=== PATIENT | female | born 1985 | race Caucasian/White ===

== ENCOUNTER 2016-04-29 19:19 | Inpatient (IN) | payer BC ==
[~2016-04-29 19:19] MED LIST: Dinoprostone* 10 MG VAG.SUPP VAGINAL ONE
[2016-04-30] MEDS ORDERED: Oxytocin in LR* 20 UNITS/1,000 ML BAG IVPB SCH (12:00)
[2016-04-30 12:51] LABS: Hematocrit 40 % (35-47); Hemoglobin 13.4 g/dl (12.0-16.0); Mean Corpuscular HGB Conc 34 g/dl (31-36); Mean Corpuscular Hemoglobin 31 pg (27-31); Mean Corpuscular Volume 93 fL (80-97); Mean Platelet Volume 9 um3 (7.4-10.4); Red Blood Count 4.27 10^6/ul (4.0-5.4); Red Cell Distribution Width 14 % (10.5-15); White Blood Count 12.3 10^3/ul (3.5-10.8)
[2016-04-30] MEDS ORDERED: Gentamicin ADULT (*) 40 MG/ML VIAL IVPB ONE (19:38)
[2016-04-30] MEDS ORDERED: Vancomycin(*) 1,000 MG in NS 0.9% 250 ML* 250 ML IVPB SCH (20:00)
[2016-04-30] MEDS ORDERED: OBEPIDURAL* 250 ML ONE (21:21)
[2016-04-30] MEDS ORDERED: Famotidine TAB* 20 MG PO PRN (22:17)
[2016-04-30] MEDS ORDERED: Sodium Citrate/Citric Acid* 15 ML UDC PO PRN (22:17)
[2016-04-30] MEDS ORDERED: Phenylephrine IV* 40 MCG/ML 10 ML SYRINGE IV PUSH PRN ×2 (22:17)
[2016-04-30] MEDS ORDERED: EPHEDrine (Pressors)* 50 MG/ML VIAL IV PUSH PRN ×2 (22:17)
[2016-04-30] MEDS ORDERED: OBEPIDURAL* 250 ML EPIDURAL SCH (23:00)
[2016-05-01] MEDS ORDERED: Oxytocin in LR* 20 UNITS/1,000 ML BAG IVPB SCH ×2 (06:00→14:00)
[2016-05-01] MEDS ORDERED: Sodium Citrate/Citric Acid* 15 ML UDC PO ONE (10:49)
[2016-05-01] MEDS ORDERED: ceFOXitin 2 GM IVPREMIX* 2 GM/50 ML BAG IVPB ONE (10:49)
[2016-05-01] MEDS ORDERED: Morphine PF AMP (0.5MG/ML)* 5 MG/10 ML AMP ONE (11:18)
[2016-05-01] MEDS ORDERED: OXYTOCIN* 10 UNITS/ML 1 ML VIAL ONE (11:18)
[2016-05-01] MEDS ORDERED: Phenylephrine IV* 40 MCG/ML 10 ML SYRINGE ONE (11:18)
[2016-05-01] MEDS ORDERED: Ondansetron INJ* 2 MG/ML VIAL IV PRN ×2 (12:10→12:12)
[2016-05-01] MEDS ORDERED: fentaNYL* 50 MCG/ML 2 ML VIAL (100 MCG VIAL) IV PRN (12:10)
[2016-05-01] MEDS ORDERED: Naloxone* 0.4 MG/ML 1 ML VIAL IV PRN (12:12)
[2016-05-01] MEDS ORDERED: diPHENhydraMINE IV* 50 MG/ML 1 ml VIAL (BENADRYL) IV PRN (12:12)
[2016-05-01] MEDS ORDERED: oxyCODONE/Acetamin 5/325 MG* TAB PO PRN ×3 (12:12→13:15)
[2016-05-01] MEDS ORDERED: Ondansetron INJ* 2 MG/ML VIAL ONE (12:41)
[2016-05-01] MEDS ORDERED: Glycerin ADULT SUPP PR PRN (13:15)
[2016-05-01] MEDS ORDERED: Dibucaine 1% 28.35 GM TUBE PR PRN (13:15)
[2016-05-01] MEDS ORDERED: Witch Hazel PAD* JAR TOPICAL PRN (13:15)
[2016-05-01] MEDS: Ketorolac INJ* 30 MG/ML 1 ML VIAL IV PRN ×2 (14:24→20:42)
[2016-05-01] MEDS: Docusate CAP* 100 MG PO SCH (14:25)
[2016-05-01] MEDS ORDERED: Scopolamine 1.5 mg* PATCH TRANSDERM PRN (14:58)
[2016-05-01] MEDS ORDERED: DiMENhydriNATE IV* 50 MG/ML VIAL IV PUSH PRN (14:58)
[2016-05-01] MEDS: Simethicone TAB* 80 MG TAB.CHEW PO SCH (18:57)
[2016-05-01] MEDS ORDERED: Nalbuphine* 20 MG/ML 1 ML VIAL ONE (21:26)
--- NOTE | 2016-05-01 22:32 | OP ---
AMENDED REPORT NOW INCLUDES DATE OF OPERATION - ESIGNED BEFORE ADJUSTMENT * DATE OF OPERATION: 05/02/16 - ROOM #113 DATE OF : 83 SURGEON: Elisa العلي MD VAMP MARKER: Jeromy Peres CNM ANESTHESIOLOGIST: Dr. Fernandez. ANESTHESIA: Spinal anesthesia. PRE-OP DIAGNOSIS: 41 weeks' gestation and arrest of dilation and descent at 4 cm. POST-OP DIAGNOSIS: 41 weeks' gestation and arrest of dilation and descent at 4 cm. OPERATIVE PROCEDURE: Primary low flap transverse section via Pfannenstiel. Uterus closed in 2 layers. ESTIMATED BLOOD LOSS: 700 cc. URINE OUTPUT: 400 cc clear urine. FINDINGS: Viable female in the vertex presentation. Apgars were 9 and 9. Weight is 10 pounds 11 ounces. Normal-appearing uterus. Normal-appearing ovaries and fallopian tubes bilaterally. COMPLICATIONS: None. COUNTS: Sponge, lap, and needle counts were correct x2. CONDITION: The patient was brought to the recovery room awake and in stable condition. DESCRIPTION OF PROCEDURE: The patient was brought to the operating room. She had had a Driver catheter placed earlier under sterile conditions. The patient was prepped and draped in the usual sterile fashion in the dorsal supine position with a leftward tilt. The spinal was tested with the Allis clamps and found to be adequate after a time-out was performed. A Pfannenstiel skin incision was made approximately 2 cm above the symphysis pubis. This was carried down to the underlying layer of fascia. The fascia was incised in the midline and the fascial incision was extended laterally using the Shah scissors. The fascia was grasped with Jourdan clamps and the rectus muscle was dissected using sharp and blunt dissection. The rectus muscle was found to be in the midline. The peritoneum was identified, tented up, and entered bluntly. The peritoneal incision was extended bluntly and the bladder blade was inserted. The vesicouterine peritoneum was identified and a bladder flap was created. The bladder blade was reinserted. A low flap transverse incision was made on the uterus to the level of the membranes. The uterine incision was extended bluntly. Clear amniotic fluid was encountered. The infant was delivered from the vertex presentation. The cord was clamped and cut and the infant was handed off to the awaiting epoxy specialist, Dr. Lara. Apgars were 9 and 9. The placenta was delivered. The uterus was exteriorized. The uterus was cleared of all clots and debris and the uterine incision was repaired using 0 Vicryl in a running locked fashion. A figure-of- eight suture was placed on the left angle because there was an actively bleeding vessel there. A second layer of the same suture was used to imbricate and obtain excellent hemostasis. The ovaries and fallopian tubes were examined and found to be normal. The abdomen and pelvis were copiously irrigated with warm normal saline. Once again, the uterine incision was examined and found to be hemostatic. The uterus was returned to the pelvis. The incision was once again examined and found to be hemostatic. The peritoneum was closed with 4-0 Vicryl. The subfascial layer was examined and found to be hemostatic. The fascia was closed using 0 Vicryl. The subcutaneous tissue was irrigated. Any small bleeders were cauterized with the Bovie and the skin was closed with 4-0 Monocryl in a subcuticular fashion and Steri-Strips were applied. A pressure dressing was applied. The fundus was firm. The Driver catheter had drained 400 cc of clear urine and the patient was brought to the recovery room awake and in stable condition with sequential compression devices activated bilaterally throughout the surgery and will continue until the patient is ambulating regularly. [id number]/[facility] #: [id number] MTDD
[2016-05-02] MEDS: Docusate CAP* 100 MG PO SCH ×4 (02:21→20:28)
[2016-05-02] MEDS: Simethicone TAB* 80 MG TAB.CHEW PO SCH ×5 (02:23→20:28)
[2016-05-02] MEDS: Ketorolac INJ* 30 MG/ML 1 ML VIAL IV PRN (02:39)
[2016-05-02 06:58] LABS: Hematocrit 28 % (35-47); Hemoglobin 9.6 g/dl (12.0-16.0); Mean Corpuscular HGB Conc 35 g/dl (31-36); Mean Corpuscular Hemoglobin 32 pg (27-31); Mean Corpuscular Volume 92 fL (80-97); Mean Platelet Volume 9 um3 (7.4-10.4); Red Blood Count 3.01 10^6/ul (4.0-5.4); Red Cell Distribution Width 13 % (10.5-15); White Blood Count 14.3 10^3/ul (3.5-10.8)
[2016-05-02] MEDS: Ibuprofen TAB* 600 MG PO PRN ×3 (08:36→20:27)
[2016-05-02] MEDS: Ferrous Gluconate TAB* 324 MG TAB PO SCH ×2 (08:36→20:28)
[2016-05-03] MEDS: Ibuprofen TAB* 600 MG PO PRN ×3 (02:55→18:34)
[2016-05-03] MEDS: Acetaminophen TAB* 325 MG PO PRN ×3 (03:06→16:12)
[2016-05-03] MEDS: Simethicone TAB* 80 MG TAB.CHEW PO SCH ×4 (08:25→21:27)
[2016-05-03] MEDS: Docusate CAP* 100 MG PO SCH ×3 (08:25→21:28)
[2016-05-03] MEDS: Ferrous Gluconate TAB* 324 MG TAB PO SCH ×2 (08:25→21:28)
[2016-05-03] MEDS: oxyCODONE/Acetamin 5/325 MG* TAB PO PRN (20:58)
[2016-05-04] MEDS: oxyCODONE/Acetamin 5/325 MG* TAB PO PRN ×3 (03:41→10:36)
[2016-05-04] MEDS: Simethicone TAB* 80 MG TAB.CHEW PO SCH (07:57)
[2016-05-04] MEDS: Docusate CAP* 100 MG PO SCH (07:57)
[2016-05-04] MEDS: Ferrous Gluconate TAB* 324 MG TAB PO SCH (07:57)
[2016-05-04 08:30] VITALS: BP 118/72
[2016-05-04] MEDS ORDERED: Scopolamine PATCH Remove* 1 NOTE MISC PATCH OFF ONE (15:01)
== END 2016-05-04 10:52 | disposition home or self-care (01) | DRG 540 ==
LOC: MCHOBOUT 19:19 → MCHOB 04-30 06:37
PROVIDERS: ADMIT Midwife; ATTEND Midwife
PROC: 10D00Z1 Extraction of Products of Conception, Low, Open Approach (ICD-10-PCS; principal; 2016-05-02)
PROC: 3E033VJ Introduction of Other Hormone into Peripheral Vein, Percutaneous Approach (ICD-10-PCS; 2016-05-02)
PROC: 4A1H7CZ Monitoring of Products of Conception, Cardiac Rate, Via Natural or Artificial Opening (ICD-10-PCS; 2016-05-02)
DX: O48.0 Post-term pregnancy (principal); D64.9 Anemia, unspecified; O62.1 Secondary uterine inertia; O62.0 Primary inadequate contractions; O90.81 Anemia of the puerperium; Z37.0 Single live birth; Z3A.41 41 weeks gestation of pregnancy
CPT/HCPCS: 36415; 59200; 85025; 85027; 86850; 86900; 86901; A9270-GY; J0694; J1200; J1240; J1885; J2300; J2405; J2590

== ENCOUNTER → 2018-10-25 10:17 | Emergency (ER) | payer BC ==
--- NOTE | 2018-10-25 10:52 | ED ---
Abdominal Pain/Female - HPI Summary HPI Summary: A 33 y/o female presents to [facility] with a chief complaint of abdominal pain.She says that she had a sudden sharp/stabbing pain that would not resolve and progressively worsened after urinating. She tried massaging and stretching but that did not alleviate her pain. She drove herself to the ED. She says that now she gets her pain in waves but it is not as severe as it was [employer]. She denies blood in her urine, but reports some nausea [employer]OR but not currently. Pt denies any fever, chills, erythema of eyes, sore throat, CP, SOB, cough, Vomiting, dysuria, hematuria, myalgia, edema, rash, or dizziness. Now she rates her pain as a 2/10 in severity. She said that she had some bilateral compartment releases in both legs by Dr. Gallegos, adenoids removed at 1y/o and wisdom teeth removed at 17 y/o. She denies any Hx of ovarian cysts or FHx of ovarian cysts or torsion. She notes that her mother had breast cancer, and she had a daughter through IVF. She reports a Hx of IBS, but has stopped trying different medications because it would not alleviate her pain. Her LNMP started three days ago. She denies any smoking, drinking or drug use. - History of Current Complaint Chief Complaint: EDAbdPain Stated Complaint: ABD PAIN PER PT Time Seen by Provider: 10/25/18 10:40 Hx Obtained From: Patient Onset/Duration: Sudden Onset, Lasting Hours, Still Present Timing: Hours Severity Initially: Severe Severity Currently: Mild Pain Intensity: 2 Pain Scale Used: 0-10 Numeric Location: Diffuse Radiates: No Character: Sharp Aggravating Factor(s): Nothing Alleviating Factor(s): Nothing Associated Signs and Symptoms: Positive: Nausea - [employer]. Negative: Fever, Cough, Chest Pain, Dizzy, Urinary Symptoms, Vomiting Allergies/Adverse Reactions: Allergies Allergy/AdvReac Type Severity Reaction Status Date / Time No Known Allergies Allergy Verified 04/29/16 20:37 Home Medications: Home Medications NK [No Home Medications Reported] 10/25/18 [History Confirmed 10/25/18] PMH/Surg Hx/FS Hx/Imm Hx Sensory History: Denies: Hx Deafness EENT History: Denies: Hx Deafness - Cancer History Hx Chemotherapy: No Hx Radiation Therapy: No - Surgical History Surgery Procedure, Year, and Place: bilateral compartment releases in both legs by Dr. Gallegos. adenoids removed at 1y/o. wisdom teeth removed at 17 y/o. Infectious Disease History: No Infectious Disease History: Denies: Traveled Outside the [place] in Last 30 Days - Family History Known Family History: Positive: Other - breast cancer- mother - Social History Alcohol Use: None Substance Use Type: Reports: None Smoking Status (MU): Never Smoked Tobacco Review of Systems Negative: Fever, Chills Negative: Erythema Negative: Sore Throat Negative: Chest Pain Negative: Shortness Of Breath, Cough Positive: Abdominal Pain, Nausea - [employer]OR but not currently. Negative: Vomiting Positive: other - negative: blood in urine. Negative: dysuria, hematuria Negative: Myalgia, Edema Negative: Rash Neurological: Negative - dizziness All Other Systems Reviewed And Are Negative: Yes Physical Exam - Summary Physical Exam Summary: Constitutional: Well-developed, Well-nourished, Alert. (-) Distressed Skin: Warm, Dry HENT: Normocephalic; Atraumatic Eyes: Conjunctiva normal Neck: Musculoskeletal ROM normal neck. (-) JVD, (-) Stridor, (-) Tracheal deviation Cardio: Rhythm regular, rate normal, Heart sounds normal; Intact distal pulses; The pedal pulses are 2+ and symmetric. Radial pulses are 2+ and symmetric. (-) Murmur Pulmonary/Chest wall: Effort normal. (-) Respiratory distress, (-) Wheezes, (-) Rales Abd: Soft, Mild right adnexal tenderness, (-) Distension, (-) Guarding, (-) Rebound Musculoskeletal: (-) Edema Lymph: (-) Cervical adenopathy Neuro: Alert, Oriented x3 Psych: Mood and affect Normal Triage Information Reviewed: Yes Vital Signs On Initial Exam: Initial Vitals Temp Pulse Resp BP Pulse Ox 98.1 F 60 18 109/73 100 10/25/18 10:19 10/25/18 10:19 10/25/18 10:19 10/25/18 10:19 10/25/18 10:19 Vital Signs Reviewed: Yes Diagnostics - Vital Signs Vital Signs Temp Pulse Resp BP Pulse Ox 10/25/18 10:19 98.1 F 60 18 109/73 100 - Laboratory Result Diagrams: 10/25/18 10:50 10/25/18 10:50 Lab Statement: Any lab studies that have been ordered have been reviewed, and results considered in the medical decision making process. - Ultrasound No standard instances Ultrasound Interpretation Completed By: Radiologist Summary of Ultrasound Findings: Transvaginal ultrasound impression: A small amount of fluid in the endometrial cavity. Follicle in the right ovary measures 1.9 cm. ED physician has reviewed this imaging report. Renal ultrasound impression: NEGATIVE EXAM, NO EVIDENCE FOR HYDRONEPHROSIS. ED physician has reviewed this imaging report. Re-Evaluation - Re-Evaluation First Eval Re-Evaluation Time: 14:57 Change: Improved Comment: Patient is completely nontender Abdominal Pain Fem Course/Dx - Course Course Of Treatment: A 33 y/o female presents to [facility] with a chief complaint of abdominal pain.She says that she had a sudden sharp/stabbing pain that would not resolve and progressively worsened after urinating. She tried massaging and stretching but that did not alleviate her pain. She drove herself to the ED. She says that now she gets her pain in waves but it is not as severe as it was [employer]. She denies blood in her urine, but reports some nausea [employer]OR but not currently. Pt denies any fever, chills, erythema of eyes, sore throat, CP, SOB, cough, Vomiting, dysuria, hematuria, myalgia, edema, rash, or dizziness. Now she rates her pain as a 2/10 in severity. She said that she had some bilateral compartment releases in both legs by Dr. Gallegos, adenoids removed at 1y/o and wisdom teeth removed at 17 y/o. She denies any Hx of ovarian cysts or FHx of ovarian cysts or torsion. She notes that her mother had breast cancer, and she had a daughter through IVF. She reports a Hx of IBS, but has stopped trying different medications because it would not alleviate her pain. Her LNMP started three days ago. She denies any smoking, drinking or drug use. The physical exam revealed mild right adnexal tenderness, no rebound no guarding. Blood work, chemistries and urines obtained and are WNL. Transvaginal ultrasound impression : A small amount of fluid in the endometrial cavity. Follicle in the right ovary measures 1.9 cm. Renal ultrasound impression: NEGATIVE EXAM, NO EVIDENCE FOR HYDRONEPHROSIS. We recommended internal exam for further characterization of the pain but the patient refused. Upon re-eval the patient' s abdomen is completely nontender. I could not rule out intermittent ovarian torsion today. The patient will be discharged and was instructed to have a follow up with her BLOOM CONVEYOR OPERATOR or Dr. Erickson in 2-3 days. She is to return to the ED immediately for sudden severe pain and can take Ibuprofen as needed for pain. The patient is agreeable with this plan. - Diagnoses Provider Diagnoses: Right ovarian cyst, Right lower quadrant abdominal pain Discharge - Sign-Out/Discharge Documenting (check all that apply): Patient Departure - DC Patient Received Moderate/Deep Sedation with Procedure: No - Discharge Plan Condition: Stable Disposition: HOME Patient Education Materials: Ovarian Cyst (ED), Abdominal Pain (ED) Referrals: Joy Lindsey NP [Primary Care Provider] - (2-3 days) Sparkle Erickson MD [Medical Doctor] - (2-3 days) Additional Instructions: I could not rule out intermittent ovarian torsion today. Have a follow up with your BLOOM CONVEYOR OPERATOR or Dr. Erickson in 2-3 days. Return to the ED immediately for sudden severe pain. You can take Ibuprofen as needed for pain. RETURN TO THE EMERGENCY DEPARTMENT FOR CHANGING OR WORSENING SYMPTOMS. - Attestation Statements Document Initiated by Scribe: Yes Documenting Scribe: Lawrence Kennedy Provider For Whom Scribe is Documenting (Include Credential): Danilo Ibarra MD Scribe Attestation: Lawrence Lerma, scribed for Danilo Ibarra MD on 10/25/18 at 1503.
[2018-10-25 11:10] LABS: ABS Eosinophils 0.1 10^3/ul (0-0.6); ABS Lymphocytes 1.8 10^3/ul (1.0-4.8); ABS Monocytes 0.3 10^3/ul (0-0.8); ABS Neutrophils 1.9 10^3/ul (1.5-7.7); Eosinophil % 1.8 %; Hematocrit 38 % (35-47); Hemoglobin 13.3 g/dL (12.0-16.0); Lymphocyte % 43.5 %; Mean Corpuscular HGB Conc 35 g/dL (31-36); Mean Corpuscular Hemoglobin 31 pg (27-31); Mean Corpuscular Volume 88 fL (80-97); Mean Platelet Volume 8.2 fL (7.4-10.4); Nucleated Red Blood Cells % 0.3; Platelet Count 258 10^3/uL (150-450); Red Blood Count 4.29 10^6 /uL (3.70-4.87); Red Cell Distribution Width 13 % (10-15); White Blood Count 4.1 10^3/uL (3.5-10.8)
[2018-10-25 11:26] LABS: HCG Pregnancy < 0.60 mIU/mL
[2018-10-25 11:37] LABS: Urine Appearance Clear; Urine Bilirubin Negative (Negative); Urine Blood Negative (Negative); Urine Color Yellow; Urine Glucose Negative (Negative); Urine Ketones Negative (Negative); Urine Nitrite Negative (Negative); Urine Protein Negative (Negative); Urine Specific Gravity 1.009 (1.010-1.030); Urine Urobilinogen Negative (Negative)
[2018-10-25 11:37] LABS: ALT 8 U/L (7-52); AST 14 U/L (13-39); Albumin 4.5 g/dL (3.2-5.2); Albumin/Globulin Ratio 1.9 (1-3); Alkaline Phosphatase 42 U/L (34-104); Anion Gap 5 mmol/L (2-11); Blood Urea Nitrogen 12 mg/dL (6-24); C Reactive Protein < 1.00 mg/L (<8.01); CO2 Carbon Dioxide 26 mmol/L (22-32); Calcium 9.1 mg/dL (8.6-10.3); Chloride 108 mmol/L (101-111); EGFR Non-African American 88.5 (>60); Globulin 2.4 g/dL (2-4); Glucose 98 mg/dL (70-100); Potassium 3.6 mmol/L (3.5-5.0); Sodium 139 mmol/L (135-145); Total Protein 6.9 g/dL (6.4-8.9)
[2018-10-25 15:37] VITALS: BP 122/52
== END | disposition home or self-care (01) ==
LOC: ED 10:17
DX: R10.31 Right lower quadrant pain (principal); N83.201 Unspecified ovarian cyst, right side
CPT/HCPCS: 36415; 76775; 76830; 80053; 81003; 83605; 83690; 84702; 85025; 86140; 99283